=== PATIENT | male | born 1995 | race Caucasian/White ===

== ENCOUNTER 2019-09-17 16:39 | Emergency (ER) | payer BC, SELFPAY ==
[2019-09-17 17:34] LABS: Absolute Lymphocytes (CBC) 1.2 K/uL (0.7-4.9); Basophils % 0.8 % (0-1.3); Lymphocytes % 27.5 % (15.3-44.8); MPV 8.2 fL (7.6-11.3); RBC Red Blood Cell Count 5.09 M/uL (4.33-5.43)
[2019-09-17 17:36] LABS: Protime INR 1.07
[2019-09-17 17:57] LABS: ALT/SGPT 19 U/L (12-78); AST/SGOT 15 U/L (15-37); Albumin 4.2 g/dL (3.4-5.0); Alkaline Phosphatase 67 U/L (45-117); BUN Blood Urea Nitrogen 10 mg/dL (7-18); Bicarbonate 32 mmol/L (21-32); Bilirubin Direct 0.2 mg/dL (0-0.2); Bilirubin Total 0.6 mg/dL (0.2-1.0); Glucose Level 100 mg/dL (74-106); Protein, Total 7.6 g/dL (6.4-8.2); Sodium Level 141 mmol/L (136-145)
[2019-09-17 18:16] LABS: Barbiturates NEGATIVE (NEGATIVE); Benzodiazepines NEGATIVE (NEGATIVE); Cocaine NEGATIVE (NEGATIVE); METHAMPHETAM NEGATIVE (NEGATIVE); Methadone NEGATIVE (NEGATIVE); Opiates NEGATIVE (NEGATIVE); Phencyclidine NEGATIVE (NEGATIVE); THC Cannibis NEGATIVE (NEGATIVE)
[2019-09-17 18:50] LABS: Urine Blood NEGATIVE (NEG); Urine Glucose TRACE (NEG); Urine Protein NEGATIVE (NEG); Urine Specific Gravity >1.030 (1.005-1.030); Urine pH 6.5 (5.0-7.0)
[2019-09-17] MEDS ORDERED: ZIPRASIDONE MESYLA 20 MG/VIAL IM ONE (19:42)
[2019-09-17] MEDS ORDERED: NS 0.9% VIAL 10 ML ONE (19:43)
--- NOTE | 2019-09-18 11:15 | EKG ---
Test Date: 2019-09-17 Test Time: 17:28:26 Blasting Machine Operator: ROSANA MEASUREMENT RESULTS: Intervals: Rate: 59 DE: 110 QRSD: 102 QT: 398 QTc: 394 Sargeant: P: 51 DE: 110 QRS: 91 T: 68 INTERPRETIVE STATEMENTS: Sinus bradycardia with short DE Rightward axis ST elevation, probably due to early repolarization Borderline ECG No previous ECG available for comparison Electronically Signed On 09-18-19 11:13:40 CDT by Jasen Lopez
--- NOTE | 2019-09-18 17:00 | EDPHYS ---
Physician Documentation [facility] Name: Saeid Stroud Age: 23 yrs Sex: Male : 1995 Arrival Date: 09/17/2019 Time: 16:42 Bed 15 Private MD: ED Physician Jayy Macdonald HPI: 09/16 17:09 This 23 yrs old Male presents to ER via Ambulatory with complaints of Mental snw Evaluation. 17:09 Onset: The symptoms/episode began/occurred acutely. Associated signs and symptoms: snw Pertinent positives: The patient does not have any pertinent positive signs or symptoms associated with pediatric illness. Modifying factors: The patient symptoms are alleviated by nothing, the patient symptoms are aggravated by stimulation. The patient has not experienced similar symptoms in the past. The patient has not recently seen a physician. Called to have evut with [facility] and they recommended inpatient therapy. Historical: - Allergies: 16:54 No Known Allergies; em - Home Meds: 16:54 None [Active]; em - PMHx: 16:54 None; em - PSHx: 16:54 None; em - Immunization history:: Adult Immunizations up to date. - Social history:: Smoking status: Patient denies any tobacco usage or history of. Patient/guardian denies using alcohol, street drugs. ROS: 17:08 Eyes: Negative for injury, pain, redness, and discharge, ENT: Negative for injury, snw pain, and discharge, Neck: Negative for injury, pain, and swelling, Cardiovascular: Negative for chest pain, palpitations, and edema, Respiratory: Negative for shortness of breath, cough, wheezing, and pleuritic chest pain, Abdomen/GI: Negative for abdominal pain, nausea, vomiting, diarrhea, and constipation, Back: Negative for injury and pain, : Negative for injury, bleeding, discharge, and swelling, MS/Extremity: Negative for injury and deformity, Skin: Negative for injury, rash, and discoloration, Neuro: Negative for headache, weakness, numbness, tingling, and seizure. 17:08 Constitutional: Positive for anxious state. 17:08 Psych: Positive for anxiety, auditory hallucinations, suicidal ideation. Exam: 17:06 Head/Face: Normocephalic, atraumatic. Eyes: Pupils equal round and reactive to light, snw extra-ocular motions intact. Lids and lashes normal. Conjunctiva and sclera are non-icteric and not injected. Cornea within normal limits. Periorbital areas with no swelling, redness, or edema. ENT: Nares patent. No nasal discharge, no septal abnormalities noted. Tympanic membranes are normal and external auditory canals are clear. Oropharynx with no redness, swelling, or masses, exudates, or evidence of obstruction, uvula midline. Mucous membranes moist. Neck: Trachea midline, no thyromegaly or masses palpated, and no cervical lymphadenopathy. Supple, full range of motion without nuchal rigidity, or vertebral point tenderness. No Meningismus. Chest/axilla: Normal chest wall appearance and motion. Nontender with no deformity. No lesions are appreciated. Cardiovascular: Regular rate and rhythm with a normal S1 and S2. No gallops, murmurs, or rubs. Normal PMI, no JVD. No pulse deficits. Respiratory: Lungs have equal breath sounds bilaterally, clear to auscultation and percussion. No rales, rhonchi or wheezes noted. No increased work of breathing, no retractions or nasal flaring. Abdomen/GI: Soft, non-tender, with normal bowel sounds. No distension or tympany. No guarding or rebound. No evidence of tenderness throughout. Back: No spinal tenderness. No costovertebral tenderness. Full range of motion. Skin: Warm, dry with normal turgor. Normal color with no rashes, no lesions, and no evidence of cellulitis. MS/ Extremity: Pulses equal, no cyanosis. Neurovascular intact. Full, normal range of motion. Neuro: Awake and alert, GCS 15, oriented to person, place, time, and situation. Cranial nerves II-XII grossly intact. Motor strength 5/5 in all extremities. Sensory grossly intact. Cerebellar exam normal. Normal gait. 17:06 Constitutional: The patient appears alert, awake, anxious, restless. 17:06 Psych: Behavior/mood is anxious, aggressive, Affect is animated, Oriented to person, place, time, voices with commands for SI, Judgement / Insight is impaired. Memory is normal. Delusions/hallucinations are not present. Vital Signs: 16:48 BP 140 / 85; Pulse 67; Resp 18; Temp 98.0(O); Pulse Ox 100% on R/A; Weight 73.48 kg em (M); Height 6 ft. 0 in. (182.88 cm); Pain 0/10; 09/17 04:13 BP 113 / 78; Pulse 57; Resp 18; Temp 97.9; Pulse Ox 98% on R/A; Pain 0/10; tl2 09:29 BP 127 / 73; Pulse 62; Resp 16; Temp 97.6(TE); Pulse Ox 99% on R/A; mh5 09/16 16:48 Body Mass Index 21.97 (73.48 kg, 182.88 cm) em MDM: 09/16 16:53 Patient medically screened. snw 17:26 Data reviewed: vital signs, nurses notes. Data interpreted: Pulse oximetry: on room air snw is 100 %. Interpretation: normal. Counseling: I had a detailed discussion with the patient and/or guardian regarding: the historical points, exam findings, and any diagnostic results supporting the discharge/admit diagnosis, the presence of at least one elevated blood pressure reading (>120/80) during this emergency department visit, the need to transfer to another facility, [facility] does not immediately have the required specialist. ED course: Pt's sister states that he confided in her that the voices were telling him to hurt her son. 18:30 ED course: Pt becoming agitated, states the [place] [facility] turned the voices on and he snw is just going to see a telehealth director, does not want to stay for observation/transfer. Sister scared for her Brother. ARAM obtained. Geodon 20mg IM given. 19:30 ED course: Pt sitting calmly on stretcher. Wants to call his Sister.. snw 09/17 01:55 Transition of care: After a detail discussion of the patient's case, care is snw transferred to Bradley Leyva MD. ED course: No beds at [facility] or [facility]. Report to Dr. Leyva. 17:00 Differential diagnosis: drug withdrawal. acute psychotic break, depression, psychosis adrianna secondary to non-compliance. ED course: pt not suicidal, not homicidal, alert and oriented x3, will get outpatient help and/or return to the er if symptoms increase or persist. 09/16 17:06 Order name: Acetaminophen; Complete Time: 18:05 snw 05/13 17:06 Order name: Basic Metabolic Panel; Complete Time: 18:05 w 09/16 17:06 Order name: CBC with Diff; Complete Time: 17:37 w 09/16 17:06 Order name: ETOH Level; Complete Time: 18:05 w 09/16 17:06 Order name: Hepatic Function; Complete Time: 18:05 w 09/16 17:06 Order name: PT-INR; Complete Time: 17:37 w 09/16 17:06 Order name: Ptt, Activated; Complete Time: 17:37 w 09/16 17:06 Order name: Salicylate; Complete Time: 18:49 snw 09/16 17:06 Order name: Urine Drug Screen; Complete Time: 18:21 w 09/16 17:58 Order name: Urine Dipstick--Ancillary (enter results) bd 09/16 17:59 Order name: Urine Dipstick-Ancillary; Complete Time: 18:51 EDMS 09/16 17:06 Order name: EKG; Complete Time: 17:07 [facility] 09/16 17:06 Order name: EKG - Nurse/Tech; Complete Time: 17:30 w 09/16 17:06 Order name: IV Saline Lock; Complete Time: 17:31 [facility] 09/16 17:06 Order name: Labs collected and sent; Complete Time: 17:31 [facility] 09/16 17:06 Order name: Urine Dipstick-Ancillary (obtain specimen); Complete Time: 18:02 [facility] 09/16 18:51 Order name: consult Order-Police [facility] 09/17 05:14 Order name: Diet Regular; Complete Time: 05:14 2 09/17 08:37 Order name: Diet Finger Food; Complete Time: 08:37 5 09/17 10:43 Order name: Diet Finger Food; Complete Time: 10:43 5 09/17 11:38 Order name: Diet Finger Food; Complete Time: 11:38 bd Administered Medications: 09/16 19:34 CANCELLED (other interventions): Geodon 10 mg IM once snw 19:43 Not Given (Duplicate Order): Geodon 20 mg IM once vc 19:44 Drug: Geodon 20 mg Route: IM; Site: right ventrogluteal; vc 23:00 Follow up: Response: No adverse reaction; Marked relief of symptoms vc Disposition: 09/17 16:59 Co-signature as Attending Physician, Jayy Macdonald MD I agree with the assessment and adrianna plan of care. Disposition: 09/18/19 16:59 Discharged to Home. 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 - Condition is Stable. - Discharge Instructions: Insomnia, Psychosis. - Medication Reconciliation Form, Thank You Letter, Antibiotic Education, Prescription Opioid Use, SBAR form form. - Follow up: Private Physician; When: 2 - 3 days; Reason: Recheck today's complaints, Continuance of care, Re-evaluation by your physician. - Problem is new. - Symptoms have improved. Signatures: Dispatcher [employer] EDRI Jayy Macdonald MD MD cha Therrien, Shelly, CURTAIN DRIER-C CURTAIN DRIER-Csnw Nathaniel Mccurdy, RN RN Angela Sahu RN Rocio Walker RN RN vc Corrections: (The following items were deleted from the chart) 09/16 19:34 18:51 Geodon 10 mg IM once ordered. snw snw 20:08 18:30 ED course: sitting calmly on stretcher, no distress noted.. snw snw 09/17 17:02 16:59 09/18/2019 16:59 Discharged to Home. Impression: Unspecified psychosis not due to adrianna a substance or known physiological condition - resolved. Condition is Stable. Forms are SBAR form, Medication Reconciliation Form, Thank You Letter, Antibiotic Education, Prescription Opioid Use. Follow up: Private Physician; When: 2 - 3 days; Reason: Recheck today's complaints, Continuance of care, Re-evaluation by your physician. Problem is new. Symptoms have improved. adrianna 17:21 17:02 09/18/2019 16:59 Discharged to Home. Impression: Unspecified psychosis not due to hb a substance or known physiological condition - resolved; Insomnia. Condition is Stable. Discharge Instructions: Psychosis. Forms are SBAR form, Medication Reconciliation Form, Thank You Letter, Antibiotic Education, Prescription Opioid Use. Follow up: Private Physician; When: 2 - 3 days; Reason: Recheck today's complaints, Continuance of care, Re-evaluation by your physician. Problem is new. Symptoms have improved. adrianna
--- NOTE | 2019-09-18 17:00 | ER ---
Nurse's Notes [facility] Name: Saeid Stroud Age: 23 yrs Sex: Male : 1995 Arrival Date: 09/17/2019 Time: 16:42 Bed 15 Private MD: Diagnosis: Unspecified psychosis not due to a substance or known physiological condition-resolved;Insomnia Presentation: 09/16 16:48 Chief complaint: Patient states: has had auditory hallucinations for about one year em after being incarcerated, voices telling him to kill himself, pt does not have a plan, pt reports not sleeping well and having bad dreams. Coronavirus screen: Proceed with normal triage. Patient denies a cough. Patient denies shortness of breath or difficulty breathing. Patient denies measured and/or subjective temperature greater than 100.4F prior to today's visit. Patient denies travel on a cruise ship or to a country the [facility] currently lists as an affected area. Patient denies contact with known and/or suspected case of COVID-19. Ebola Screen: Patient negative for fever greater than or equal to 101.5 degrees Fahrenheit, and additional compatible Ebola Virus Disease symptoms Patient denies exposure to infectious person. Patient denies travel to an Ebola-affected area in the 21 days before illness onset. No symptoms or risks identified at this time. Initial Sepsis Screen: Does the patient meet any 2 criteria? No. Patient's initial sepsis screen is negative. Does the patient have a suspected source of infection? No. Patient's initial sepsis screen is negative. Risk Assessment: Do you want to hurt yourself or someone else? Patient reports desire/thoughts of hurting themselves or someone else. Provider notified. Onset of symptoms was September 17, 2019. 16:48 Method Of Arrival: Ambulatory em 16:48 Acuity: PRAMOD 2 em Historical: - Allergies: 16:54 No Known Allergies; em - Home Meds: 16:54 None [Active]; em - PMHx: 16:54 None; em - PSHx: 16:54 None; em - Immunization history:: Adult Immunizations up to date. - Social history:: Smoking status: Patient denies any tobacco usage or history of. Patient/guardian denies using alcohol, street drugs. Screenin:29 Abuse screen:. Nutritional screening: No deficits noted. Tuberculosis screening: No vc symptoms or risk factors identified. Fall Risk None identified. Assessment: 17:26 Reassessment: Patients sister stopped me in the hallway to state that patient told her, vc "the voices in my head intimate me, they keep telling me something that is making me mad, they keep telling me to monroy down your son." Patients sister states she is afraid if the patient does not get help he will kill her son. Pain: Denies pain. 17:30 General: Appears in no apparent distress. comfortable, Behavior is calm, cooperative, vc appropriate for age, flat, quiet. Neuro: Level of Consciousness is awake, alert, obeys commands. Cardiovascular: Capillary refill < 3 seconds Patient's skin is warm and dry. Respiratory: Airway is patent Respiratory effort is even, unlabored, Respiratory pattern is regular, symmetrical. GI: No signs and/or symptoms were reported involving the gastrointestinal system. : 3-way catheter in place. EENT: 18:48 Reassessment: Patient's sister goes to leave and tells patient it is possible he will vc have to go to a mental facility in [place], patient gets upset and states he is not going to [place]. Police and security at bedside. Provider requests a psych warrant to hold patient in ER until a facility will accept him. 19:00 Reassessment: Patient appears in no apparent distress at this time. Patient and/or vc family updated on plan of care and expected duration. Pain level reassessed. Patient made phone call to sister. No complaints of needs voiced at this time. 20:00 Reassessment: Patients sister wants us to call once he is accepted to a facility. vc Sisters name is Natalia Toth, [id number]. Access code for patient is [email or web address]. Patient does not want to stay. Patient is agitated but not showing any signs of violence. 21:00 Reassessment: Patient appears in no apparent distress at this time. Patient offered a vc sandwich, he refuses but asks for a glass of water. Will continue to monitor. 22:00 Reassessment: Patient appears in no apparent distress at this time. Patient resting vc with his eyes closed, chest rising and falling equally. 23:00 Reassessment: Patient appears in no apparent distress at this time. No changes from vc previously documented assessment. 09/17 01:00 Reassessment: Patient appears in no apparent distress at this time. Patient resting vc with eyes closed, chest rising and falling equally. No complaints at this time. Reassessment: Patient is resting comfortably with eyes closed, chest rising and falling equally. 02:00 Reassessment: Patient appears in no apparent distress at this time. Patient laying with vc eyes closed, resting peacefully. 03:00 Reassessment: Patient appears in no apparent distress at this time. Patient and/or ao family updated on plan of care and expected duration. Pain level reassessed. Pt in no distress. 04:07 Reassessment: Patient appears in no apparent distress at this time. Pt in no distress. ao Safety seater in front of pt's room for safety observations. 06:07 Reassessment: Patient appears in no apparent distress at this time. Patient sleeping in ao bed with no SS of distress. Safety seater in front of room. 10:30 Reassessment: Pt lying in bed resting with eyes closed and resp even and unlabored. No ah needs voiced at this time. Sitter present. 11:30 Reassessment: Pt lying in bed with eyes closed and resp even and unlabored. No needs ah voiced at this time. 14:37 Reassessment: [facility]. Psych: 09/16 17:05 Subjective: Patient's mood is sad, Hallucinations are auditory, Having thoughts of vc suicide. Denies suicidal plan. 17:05 Objective: Patient is cooperative, Speech is normal. Interventions: Removed personal vc items and placed in bag. Patient placed in hospital gown. Searched person for dangerous items. Urine collected and sent for urine drug test. Belonging list filled out. Suicide Risk Assessment: Sad Person Scale: Sex of patient: Male: Score 1 point. Age of patient: Score 1 point if patient 15-34. Depression: Score 1 point if signs of depression are present. Previous Attempt: Score 0 point if patient has not previously attempted suicide. Substance Abuse: Score 1 point if patient abuses alcohol or drugs. Rational Thinking: Score 1 point if patient is lacking rational thinking. Social Support: Score 1 point if social support is lacking and/or unavailable. Organized Plan: Score 0 if patient did not have an organized plan in place. Relationship: Score 1 point if patient is , , , or for a single male Chronic Sickness: Score 0 point if patient does not have a chronic illness, debilitating, or severe disorder. TOTAL POINTS: If total points are 5-6, proposed clinical action is to strongly consider hospitalization, depending upon confidence in the follow-up arrangement. Implement suicide precautions. Safety Checks: Personal items have been removed. Door is open. Visitors are present. Pt denies substance abuse. 18:54 Subjective: Patient's mood is irritable, Hallucinations are auditory, Having thoughts vc of homicide. Denies plan. Homicidal thoughts directed towards 5-6 family members and people close to him that are trying to help him. Objective: Patient is challenging, defensive, guarded, irritable, using poor eye contact. Interventions: Patient reassessed during use of restraints. Patient is physically safe. Commitment: Patient will be an involuntary commitment. Vital Signs: 16:48 BP 140 / 85; Pulse 67; Resp 18; Temp 98.0(O); Pulse Ox 100% on R/A; Weight 73.48 kg em (M); Height 6 ft. 0 in. (182.88 cm); Pain 0/10; 09/17 04:13 BP 113 / 78; Pulse 57; Resp 18; Temp 97.9; Pulse Ox 98% on R/A; Pain 0/10; tl2 09:29 BP 127 / 73; Pulse 62; Resp 16; Temp 97.6(TE); Pulse Ox 99% on R/A; mh5 09/16 16:48 Body Mass Index 21.97 (73.48 kg, 182.88 cm) em ED Course: 09/16 16:42 Patient arrived in ED. mr 16:51 [facility] snw 16:51 Adriana Ambrosio MD is Attending Physician. snw 16:53 Triage completed. em 16:54 Rocio Galdamez, ANDRÉS is Primary Nurse. vc 16:54 Arm band placed on. em 17:20 Initial lab(s) drawn, by me, sent to lab. EKG done, by ED staff, reviewed by Kisha RESTREPO. Inserted saline lock: 20 gauge in right antecubital area, using aseptic technique. Blood collected. Patient maintains SpO2 saturation greater than 95% on room air. 17:29 Patient has correct armband on for positive identification. Bed in low position. vc 17:35 cafeteria monitor on. Pulse ox on. NIBP on. jp3 18:30 notified [facility] to come to er to write a [facility] order. bd 18:31 faxed chart to [facility]. bd 09/17 07:06 Report given to ANDRÉS Arsmtrong. ao 09:30 Diet: Patient given a regular meal tray. mh5 13:42 contacted [facility] to screen pt. bd 16:57 Attending Physician role handed off by Adriana Ambrosio MD cha 16:57 Jayy Macdonald MD is Attending Physician. adrianna 17:15 Patient did not have IV access during this emergency room visit. IV discontinued. mh5 Administered Medications: 09/16 19:34 CANCELLED (other interventions): Geodon 10 mg IM once snw 19:43 Not Given (Duplicate Order): Geodon 20 mg IM once vc 19:44 Drug: Geodon 20 mg Route: IM; Site: right ventrogluteal; vc 23:00 Follow up: Response: No adverse reaction; Marked relief of symptoms vc Outcome: 09/17 16:59 Discharge ordered by . adrianna 17:21 Patient left the ED. Signatures: Valorie Burr Corey, MD MD cha Therrien, Shelly, RECREATIONAL COUNSELOR-C RECREATIONAL COUNSELOR-Csnw Valery RigginsNathaniel, RN Zia Valenzuela, RN Angela Arreaga RN RN Roberta Murry RN RN tl2 Martinez, Maria mh5 Pisarski, Jacob jp3 Rocio Galdamez RN RN Citlali Rogers, RN ANDRÉS Corrections: (The following items were deleted from the chart) 09/16 19:38 19:33 URINE DIPSTICK--ANCILLARY+U.LAB.BRZ drawn and sent. jp3 jp3
[2019-09-18 18:22] VITALS: BP 127/73; TEMP 97.6; O2SAT 99
== END 2019-09-18 17:21 | disposition home or self-care (01) ==
LOC: ER 16:39
DX: G47.00 Insomnia, unspecified (principal); F41.9 Anxiety disorder, unspecified
CPT/HCPCS: 36415; 80048; 80076; 80307; 80320; 80329; 81003; 85025; 85610; 85730; 93005; 96372; 99285; J3486